=== PATIENT | female | born 1945 | race African-American/Black ===

== ENCOUNTER 2018-12-29 08:21 | Outpatient (CLI) | payer MEDICARE ==
--- NOTE | 2018-12-29 09:11 | MMO ---
Bilateral MAMMO Bilat Screen [facility]. CLINICAL HISTORY: Patient is 73 years old and is seen for screening. The patient has no family history of breast cancer. The patient has no personal history of cancer. VIEWS: The views performed were: bilateral craniocaudal with tomosynthesis and bilateral mediolateral oblique with tomosynthesis. FILMS COMPARED: The present examination has been compared to prior imaging studies performed at [facility] on 11/21/1999, 02/14/2007 and 05/23/2009. MAMMOGRAM FINDINGS: There are scattered fibroglandular densities. There are no suspicious masses, suspicious calcifications, or new areas of architectural distortion. IMPRESSION: THERE IS NO MAMMOGRAPHIC EVIDENCE OF MALIGNANCY. A ROUTINE FOLLOW-UP MAMMOGRAM IN 1 YEAR IS RECOMMENDED. THE RESULTS OF THIS EXAM WERE SENT TO THE PATIENT. ACR BI-RADS Category 1 - Negative MAMMOGRAPHY NOTE: 1. A negative mammogram report should not delay a biopsy if a dominant of clinically suspicious mass is present. 2. Approximately 10% to 15% of breast cancers are not detected by mammography. 3. Adenosis and dense breasts may obscure an underlying neoplasm.
--- NOTE | 2018-12-29 09:27 | BD ---
DEXA BONE DENSITY EXAM: HISTORY: A 73-year-old postmenopausal female for screening. COMPARISON: None. FINDINGS: Lumbar Spine: BMD (g/cm2) L1 0.638 T-Score: -3.2 L2 0.686 T-Score: -3.1 L3 0.673 T-Score: -3.7 L4 0.638 T-Score: -3.8 L1-L4 0.658 T-Score: -3.5 Femoral Neck: 0.583 T-Score: -2.4 Total Femur: 0.669 T-Score: -2.2 Impression: Osteoporosis. This patient has between an 8 and 9 times increased risk of fracture when compared wit h young patients with normal bone mineral density. POS: [facility]
== END 2018-12-29 08:22 | disposition home or self-care (01) ==
LOC: BICMAMMO 08:21
PROVIDERS: ATTEND Family Medicine
DX: Z12.31 Encounter for screening mammogram for malignant neoplasm of breast (principal); Z13.820 Encounter for screening for osteoporosis; M81.0 Age-related osteoporosis without current pathological fracture
CPT/HCPCS: 77063; 77067; 77080

== ENCOUNTER 2019-03-23 08:19 | Outpatient (CLI) | payer MEDICARE, OTHER ==
--- NOTE | 2019-03-23 11:39 | CT ---
Exam: Noncontrast chest CT; CT lung scan low dose HISTORY:Nicotine dependence. Patient has smoked for 50 years. Patient is smoking. COMPARISON: None TECHNIQUE: Low-dose screening lung CT is performed utilizing institutional protocol FINDINGS: Lung screening specific (LUNG-RADS): Category 1. Negative exam. No suspicious masses or nodules. Potential significant incidentals (lung RADS category S): None Pulmonary incidentals:There is bilateral apical pleural and parenchymal opacification suggesting engineering specialist jeana change. This finding is unchanged from a soft tissue neck CT performed on 04/23/2015. Additional areas of similar opacification are noted along the periphery of the superior segment of the right low er lobe. Emphysematous changes throughout the lung parenchyma. 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 IMPRESSION: 1. Lung RADS category 1. Negative exam. No suspicious masses or nodules. 2. Lung Rask category S: Negative. No new or unknown potential significant incidental findings requir ing urgent additional evaluation 3. Other incidentals as above. Recommendation: Continued routine annual low-dose lung screening CT. Follow-up in one year.
== END 2019-03-23 08:20 | disposition home or self-care (01) ==
LOC: CT 08:19
PROVIDERS: ATTEND Family Medicine
DX: F17.210 Nicotine dependence, cigarettes, uncomplicated (principal); R06.09 Other forms of dyspnea
CPT/HCPCS: G0297

== ENCOUNTER 2019-04-07 16:17 | Emergency (ER) | payer MEDICARE, OTHER ==
[2019-04-07 16:39] LABS: #Basophils 0.1 thou/uL (0.0-0.2); #Eosinphils 0.1 thou/uL (0.0-0.7); #Lymphocytes 2.6 thou/uL (1.20-3.40); #Monocytes 0.5 thou/uL (0.11-0.59); #Neutrophils 2.2 thou/uL (1.40-6.50); %Basophils 1.1 % (0.0-1.0); %Eosinophils 2.5 % (0.0-10.0); %Lymphocytes 46.9 % (21.0-51.0); %Monocytes 9.7 % (0.0-10.0); %Neutrophils 39.9 % (42.0-75.0); Hemoglobin 14.4 g/dL (12.0-16.0); Mean Corpuscular HGB CONC 33.4 g/dL (32.0-36.0); Mean Corpuscular Hemoglobin 29.8 pg (27.0-31.0); Mean Corpuscular Volume 89.3 fL (78.0-98.0); Mean Platelet Volume 7.3 fL (7.4-10.4); Platelet Count 211 thou/uL (130-400); RBC Distribution Width 13.1 % (11.5-14.5); Red Blood Cell (RBC) Count 4.82 mill/uL (4.20-5.40); White Blood Cell (WBC) Count 5.5 thou/uL (4.8-10.8)
[2019-04-07 17:03] LABS: ALT (SGPT) 18 U/L (8-55); AST (SGOT) 28 U/L (5-34); Albumin 4.1 g/dL (3.4-4.8); Alkaline Phosphatase 74 U/L (40-150); Anion Gap 14 mmol/L (10-20); BUN (Urea Nitrogen) 14 mg/dL (9.8-20.1); Bilirubin, Total 0.4 mg/dL (0.2-1.2); CK (CPK) 134 U/L (29-168); Calc. Creatinine Clearance 0 mL/min (70-130); Calcium 9.3 mg/dL (7.8-10.44); Carbon Dioxide 22 mmol/L (23-31); Chloride 106 mmol/L (98-107); Estimated GFR-MDRD 83; Glucose 108 mg/dL (83-110); Potassium 4.8 mmol/L (3.5-5.1); Protein, Total 7.1 g/dL (6.0-8.3); Sodium 137 mmol/L (136-145)
--- NOTE | 2019-04-07 17:16 | RAD ---
EXAM: Chest 2 views: HISTORY: Weakness and dizziness COMPARISON: 10/17/2015 FINDINGS: There is a normal-sized cardiomediastinal silhouette. Hyperexpansion lungs is secondary to COPD. Th ere is no evidence of consolidation, mass, or pleural effusion. The bones are unremarkable. IMPRESSION: No evidence of acute cardiopulmonary disease
--- NOTE | 2019-04-07 19:03 | CT ---
EXAM: CT brain without contrast HISTORY: Weakness and dizziness COMPARISON: None TECHNIQUE: Multiple contiguous axial images were obtained and a CT of the brain without contrast. FINDINGS: There are scattered subtle hypodensities in the subcortical and periventricular white matte r consistent with small vessel ischemic disease. There is no evidence of hydrocephalus, intracranial hemorrhage, or extra-axial fluid collection. The calvarium and overlying soft tissues are unremarkable. The visualized paranasal sinuses and masto id air cells are well aerated. IMPRESSION: No evidence of acute intracranial abnormality
[2019-04-07] MEDS ORDERED: Ondansetron ODT 4 MG TAB ONE (20:08)
== END 2019-04-07 20:26 | disposition home or self-care (01) ==
LOC: ERS 16:17
DX: R53.1 Weakness (principal); E78.5 Hyperlipidemia, unspecified; I10 Essential (primary) hypertension; F17.210 Nicotine dependence, cigarettes, uncomplicated; Z79.899 Other long term (current) drug therapy
CPT/HCPCS: 36415; 70450; 71046; 80053; 82550; 84484; 85025; 93005; Q0162

== ENCOUNTER 2020-02-09 08:31 | Outpatient (CLI) | payer MEDICARE, OTHER ==
--- NOTE | 2020-02-09 09:34 | BD ---
DEXA BONE DENSITY STUDY: Date: 02/09/2020 HISTORY: Osteoporosis. COMPARISON: 12/29/2018. FINDINGS: Lumbar Spine: BMD (g/cm2) L1 0.687 T-Score: -2.8 Z-Score: -1.2 L2 0.648 T-Score: -3.5 Z-Score: -1.7 L3 0.638 T-Score: -4.1 Z-Score: -2.2 L4 0.610 T-Score: -4.1 Z-Score: -2.2 L1-L4 0.645 T-Score: -3.7 Z-Score: -1.9 12/29/2018: 0.658 -3.5 Bone mineral density change versus baseline: -2% Bone mineral density change versus previous: -2% Femoral Neck: 0.574 T-Score: -2.5 Z-Score: -1.1 Total Femur: 0.651 T-Score: -2.4 Z-Score: -1.1 12/29/2018: 0.669 -2.2 Bone mineral density change versus baseline: -2.6% Bone mineral density change versus previous: -2.6% IMPRESSION: Lumbar Spine: WHO classification is osteoporosis. Fracture risk is high. Femoral Neck: WHO classification is osteoporosis. 10 YEAR FRACTURE RISK: FRAX not reported because some T-scores are at or below -2.5. Treated for osteoporosis. POS: [facility]
== END 2020-02-09 08:32 | disposition home or self-care (01) ==
LOC: BICMAMMO 08:31
PROVIDERS: ATTEND Internal Medicine Rheumatology
DX: M81.0 Age-related osteoporosis without current pathological fracture (principal)
CPT/HCPCS: 77080

== ENCOUNTER 2020-06-12 09:44 | Outpatient (CLI) | payer MEDICARE, OTHER ==
--- NOTE | 2020-06-12 11:23 | CT ---
LOW DOSE [facility] FOR LUNG CANCER SCREENING: HISTORY: Nicotine dependence. Current smoker of 1 pack a day for 50-plus years. COMPARISON: 03/23/2019. FINDINGS: Chronic pleural parenchymal changes in the lung apices are stable. The mild chronic changes in the p eriphery of the superior segment of the right lower lobe are also unchanged. Emphysematous changes i n the lung parenchyma are redemonstrated. There is a tiny calcified granuloma in the right lower lob e. No lung nodules are seen. 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 There ar e vascular calcifications without evidence of aneurysmal dilatation of the thoracic aorta. No pleura l or pericardial effusions are seen. There are degenerative changes in the spine. IMPRESSION: Lung RADS category 1 - negative. RECOMMENDATION: Annual screening with LDCT is recommended in 12 months. POS: [facility]
== END 2020-06-12 09:45 | disposition home or self-care (01) ==
LOC: BICCT 09:44
PROVIDERS: ATTEND Student in an Organized Health Care Education/Training Program
DX: Z12.2 Encounter for screening for malignant neoplasm of respiratory organs (principal); F17.210 Nicotine dependence, cigarettes, uncomplicated
CPT/HCPCS: G0297

== ENCOUNTER 2020-09-09 16:59 | Outpatient (CLI) | payer MEDICARE, OTHER ==
--- NOTE | 2020-09-09 17:39 | RAD ---
2 view chest: [September 09, 2020] Comparison:10/17/2015 HISTORY: Shortness of breath, hypoxia FINDINGS: There is stable increased linear interstitial density with pulmonary hyperinflation suggest ing air trapping/COPD. Focal pleural-based opacity noted in the lung apices, right greater than left, unchanged when compared to the 2016 exam. No pneumothorax or pleural fluid. No focal consolidat ion or alveolar edema. Subtle lateral right upper lobe nodularity noted, stable as well. IMPRESSION: Chronic findings as detailed above. No acute findings are seen.
== END 2020-09-09 17:00 | disposition home or self-care (01) ==
LOC: SCSRAD 16:59
PROVIDERS: ATTEND Student in an Organized Health Care Education/Training Program
DX: R06.02 Shortness of breath (principal); J98.4 Other disorders of lung
CPT/HCPCS: 71046

== ENCOUNTER 2020-10-15 13:45 | Outpatient (CLI) | payer MEDICARE, OTHER | END 2020-10-15 13:46 | disposition home or self-care (01) | LOC: BICRAD 13:45 | PROVIDERS: ATTEND Internal Medicine Critical Care Medicine | DX: R06.00 Dyspnea, unspecified (principal); J44.9 Chronic obstructive pulmonary disease, unspecified | CPT/HCPCS: 71046 ==

== ENCOUNTER 2022-06-05 09:10 | Outpatient (CLI) | payer MEDICARE, OTHER | END 2022-06-05 09:11 | disposition home or self-care (01) | LOC: BICCT 09:10 | PROVIDERS: ATTEND Student in an Organized Health Care Education/Training Program | DX: Z12.2 Encounter for screening for malignant neoplasm of respiratory organs (principal); Z13.820 Encounter for screening for osteoporosis; F17.210 Nicotine dependence, cigarettes, uncomplicated; M81.0 Age-related osteoporosis without current pathological fracture; M85.851 Other specified disorders of bone density and structure, right thigh; M85.852 Other specified disorders of bone density and structure, left thigh; Z78.0 Asymptomatic menopausal state | CPT/HCPCS: 71271; 77080 ==

== ENCOUNTER 2023-04-07 10:33 | Outpatient (CLI) | payer MEDICARE, OTHER | END 2023-04-07 10:34 | disposition home or self-care (01) | LOC: ULT 10:33 | PROVIDERS: ATTEND Student in an Organized Health Care Education/Training Program | DX: E78.5 Hyperlipidemia, unspecified (principal) | CPT/HCPCS: 93880 ==

== ENCOUNTER 2023-08-03 08:52 | Outpatient (CLI) | payer MEDICARE, OTHER | END 2023-08-03 08:53 | disposition home or self-care (01) | LOC: BICCT 08:52 | PROVIDERS: ATTEND Nurse Practitioner Family | DX: Z12.2 Encounter for screening for malignant neoplasm of respiratory organs (principal); F17.218 Nicotine dependence, cigarettes, with other nicotine-induced disorders | CPT/HCPCS: 71271 ==